=== PATIENT | female | born 1975 | race Caucasian/White ===

== ENCOUNTER 2021-01-04 09:29 | Observation (INO) | payer BC, OTHER ==
[2021-01-04] VITALS (8 sets, daily range): BP systolic 115–126; BP diastolic 55–65
[~2021-01-04] VITALS: Ht 157.5 cm; Wt 90.7 kg
--- NOTE | 2021-01-04 09:52 | ED GU-Female ---
General Chief Complaint: - Reproductive Stated Complaint: VAGINAL BLEEDING Source: patient Exam Limitations: no limitations History of Present Illness Date Seen by Provider: Jan 04, 2021 Time Seen by Provider: 09:44 Initial Comments Patient is a 45-year-old female who presents to the emergency department with a chief complaint of heavy persistent vaginal bleeding over the last 5 weeks. Patient states her last delivery was 21 years ago and she cannot recall the last time she had a pelvic exam/Pap smear. Patient states normally she has fairly regular cycles until the last 5 weeks. She does have lower abdominal cramping. She has been using copious amounts of pads changing them out every 1/2 hour. She complains this morning she was lightheaded and dizzy and felt like she was going to pass out this morning so that is why she came to the emergency department. Her relates that she is very short of breath even with minimal exertion. She is nauseated. She denies fevers, chills, cough or congestion. No chest pain. No diarrhea. No problems with urination. She denies black or bloody stool and she denies hematuria. She is a former . All other review of systems reviewed and negative except as stated Timing/Duration: other (5 weeks) Severity/Quality: severe, cramping Location: suprapubic Associated Symptoms: other (dizzy, lightheaded, nausea, near syncopal) Allergies and Home Medications Allergies Coded Allergies: morphine (Verified Allergy, Unknown, 01/04/21) Patient Home Medication List Home Medication List Reviewed: Yes Review of Systems Review of Systems Constitutional: see HPI EENTM: no symptoms reported Respiratory: short of breath Cardiovascular: no symptoms reported Gastrointestinal: nausea Genitourinary: other (Vaginal bleeding) Musculoskeletal: no symptoms reported Skin: no symptoms reported Psychiatric/Neurological: Other (Lightheaded, dizziness) All Other Systemes Reviewed Negative Unless Noted: Yes Physical Exam Vital Signs Vital Signs - First Documented 01/04/21 01/04/21 09:33 11:50 Temp 36.2 Pulse 112 Resp 18 B/P (MAP) 118/82 (94) Pulse Ox 100 O2 Delivery Room Air Capillary Refill : Height, Weight, BMI Height: '" Weight: lbs. oz. kg; BMI Method: General Appearance: WD/WN, no apparent distress HEENT: pale conjunctivae (R), pale conjunctivae (L) Neck: normal inspection Cardiovascular: regular rate, rhythm Respiratory: lungs clear, normal breath sounds, no respiratory distress, no accessory muscle use Gastrointestinal: soft, tenderness (Minimal suprapubic tenderness) Extremities: normal range of motion, non-tender, normal inspection, no pedal edema Neurologic/Psychiatric: alert, normal mood/affect, oriented x 3 Skin: warm/dry, pallor Progress/Results/Core Measures Suspected Sepsis SIRS Temperature: Pulse: Respiratory Rate: Laboratory Tests 01/04/21 10:00: White Blood Count 14.0H Blood Pressure / Mean: Laboratory Tests 01/04/21 10:00: Creatinine 0.73, INR Comment 1.1, Platelet Count 424H, Total Bilirubin 0.2 Results/Orders Lab Results Laboratory Tests Test 01/04/21 10:00 Range/Units White Blood Count 14.0 H 4.3-11.0 10^3/uL Red Blood Count 2.68 L 3.80-5.11 10^6/uL Hemoglobin 5.6 *L 11.5-16.0 g/dL Hematocrit 20 *L 35-52 % Mean Corpuscular Volume 73 L 80-99 fL Mean Corpuscular Hemoglobin 21 L 25-34 pg Mean Corpuscular Hemoglobin Concent 29 L 32-36 g/dL Red Cell Distribution Width 17.5 H 10.0-14.5 % Platelet Count 424 H 130-400 10^3/uL Mean Platelet Volume 10.9 9.0-12.2 fL Immature Granulocyte % (Auto) 1 % Neutrophils (%) (Auto) 74 42-75 % Lymphocytes (%) (Auto) 16 12-44 % Monocytes (%) (Auto) 7 0-12 % Eosinophils (%) (Auto) 1 0-10 % Basophils (%) (Auto) 1 0-10 % Neutrophils # (Auto) 10.3 H 1.8-7.8 10^3/uL Lymphocytes # (Auto) 2.3 1.0-4.0 10^3/uL Monocytes # (Auto) 1.0 0.0-1.0 10^3/uL Eosinophils # (Auto) 0.1 0.0-0.3 10^3/uL Basophils # (Auto) 0.1 0.0-0.1 10^3/uL Immature Granulocyte # (Auto) 0.2 H 0.0-0.1 10^3/uL Prothrombin Time 14.1 12.2-14.7 SEC INR Comment 1.1 0.8-1.4 Activated Partial Thromboplast Time 30 24-35 SEC Sodium Level 137 135-145 MMOL/L Potassium Level 3.9 3.6-5.0 MMOL/L Chloride Level 104 98-107 MMOL/L Carbon Dioxide Level 22 21-32 MMOL/L Anion Gap 11 5-14 MMOL/L Blood Urea Nitrogen 15 7-18 MG/DL Creatinine 0.73 0.60-1.30 MG/DL Estimat Glomerular Filtration Rate 86 BUN/Creatinine Ratio 21 Glucose Level 107 H 70-105 MG/DL Calcium Level 8.7 8.5-10.1 MG/DL Corrected Calcium 8.7 8.5-10.1 MG/DL Total Bilirubin 0.2 0.1-1.0 MG/DL Aspartate Amino Transf (AST/SGOT) 25 5-34 U/L Alanine Aminotransferase (ALT/SGPT) 29 0-55 U/L Alkaline Phosphatase 26 L 40-136 U/L Total Protein 6.9 6.4-8.2 GM/DL Albumin 4.0 3.2-4.5 GM/DL Serum Test, Qualitative NEGATIVE NEGATIVE My Orders Orders - JUDI THIBODEAUX MD Ed Iv/Invasive Line Start (01/04/21 09:52) Cbc With Automated Diff (01/04/21 09:52) Comprehensive Metabolic Panel (01/04/21 09:52) Hcg,Qualitative Serum (01/04/21 09:52) Protime With Inr (01/04/21 09:52) Partial Thromboplastin Time (01/04/21 09:52) Ua Culture If Indicated (01/04/21 09:52) Ondansetron Injection (Zofran Injectio (01/04/21 10:00) Us Non Ob Pelvis Comp/Transvag (01/04/21 11:12) Type And Screen (01/04/21 11:47) Red Cells Leukocytes Reduced (01/04/21 10:00) Medications Given in ED Vital Signs/I&O 01/04/21 01/04/21 01/05/21 01/05/21 18:30 20:14 01:00 05:21 Temp 37.8 36.8 36.8 36.4 Pulse 101 94 96 76 Resp 18 18 18 18 B/P (MAP) 119/58 126/60 (82) 120/62 (81) 106/56 (73) Pulse Ox 96 98 99 97 O2 Delivery Room Air Room Air Room Air Room Air Capillary Refill : Progress Note #1: Time: 10:16 Progress Note Notified by the lab of critical hemoglobin of 5.6 Progress Note #2: Time: 11:09 Progress Note Case discussed with Dr. Adler on for [employer]. Recommends admission observation with transfusion of at least 2 units of packed red blood cells. Will obtain transvaginal ultrasound today. Her vital signs remained stable. I have communicated the plan of care with the patient. She is comfortable with this. All questions are sought and answered. Departure Communication (Admissions) Time/Spoke to Admitting Phy: 11:[address] Adler, recommends observation admission to women services, transfused 2 units of packed red blood cells with one on standby. TA/TV ultrasound Impression Primary Impression: Vaginal bleeding Additional Impression: Anemia Qualified Codes: D64.9 - Anemia, unspecified Disposition: ADMITTED INPATIENT Condition: Critical Admissions Decision to Admit Reason: Admit from ER (General) Decision to Admit/Date: Jan 04, 2021 Time/Decision to Admit Time: 11:09 Departure-Patient Inst. Referrals: NO,LOCAL PHYSICIAN (PCP/Family) Primary Care Physician JUDI THIBODEAUX MD Jan 04, 2021 09:52
[2021-01-04] MEDS ORDERED: ONDANSETRON 4 MG/2 ML (SDV) Z0FRAN IVP ONE (10:00)
[2021-01-04 10:14] LABS: BASOPHILS # (AUTO) 0.1 10^3/uL (0.0-0.1); BASOPHILS % (AUTO) 1 % (0-10); EOSINOPHILS # (AUTO) 0.1 10^3/uL (0.0-0.3); EOSINOPHILS % (AUTO) 1 % (0-10); LYMPHOCYTES # (AUTO) 2.3 10^3/uL (1.0-4.0); LYMPHOCYTES % (AUTO) 16 % (12-44); MEAN CORPUSCULAR HEMOGLOBIN 21 pg (25-34); MEAN CORPUSCULAR HGB CONC 29 g/dL (32-36); MEAN CORPUSCULAR VOLUME 73 fL (80-99); MEAN PLATELET VOLUME 10.9 fL (9.0-12.2); MONOCYTES % (AUTO) 7 % (0-12); NEUTROPHILS # (AUTO) 10.3 10^3/uL (1.8-7.8); NEUTROPHILS % (AUTO) 74 % (42-75); PLATELET COUNT 424 10^3/uL (130-400)
[2021-01-04 10:16] LABS: HEMATOCRIT 20 % (35-52); HEMOGLOBIN 5.6 g/dL (11.5-16.0)
[2021-01-04 10:27] LABS: POTASSIUM 3.9 MMOL/L (3.6-5.0)
[2021-01-04 10:29] LABS: CALCIUM 8.7 MG/DL (8.5-10.1)
[2021-01-04 10:30] LABS: INR 1.1 (0.8-1.4); PROTHROMBIN TIME PATIENT 14.1 SEC (12.2-14.7); TOTAL PROTEIN 6.9 GM/DL (6.4-8.2)
[2021-01-04 10:32] LABS: BILIRUBIN,TOTAL 0.2 MG/DL (0.1-1.0)
[2021-01-04 10:33] LABS: CREATININE SERUM 0.73 MG/DL (0.60-1.30)
--- NOTE | 2021-01-04 12:19 | History & Physical ---
CORY WALLACE 01/04/21 1219: History of Present Illness History of Present Illness Reason for visit/HPI Adilene is a 45yo F who presented in the ER on 01/04/21 for prolonged vaginal bleeding. Her period started 5 weeks ago and has progressively gotten heavier. She says she has been having fist sized clots and has to change her tampon every 15 minutes and her pads every 30 minutes. She has also been having painful abdominal cramping. This morning when she tried to take a shower she felt like she was going to pass out which is why she came to the ER. She has never had a period that was this heavy or lasted this long. Her period normally lasts 2 weeks and occurs regularly each month. She has an appointment for next week to discuss her vaginal bleeding but she did not feel like she could wait that long. She can not remember the last time she had a pelvic exam done. Date of Admission Jan 04, 2021 at 11:11 Time Seen by a Provider: 12:16 I consulted on this patient on 01/04/21 12:16 Attending Physician Angelo Rosario DO Admitting Physician No,Local Physician Consult Allergies and Home Medications Allergies Coded Allergies: morphine (Verified Allergy, Unknown, 01/04/21) Past [id number] Hx Patient Social History Marrital Status: Tobacco Use?: No Smoking Status: Never a Smoker Smokeless Tobacco Frequency: Never a User Use of E-Cig and/or Vaping dev: No Use of E-Cig and/or Vaping [place]: Never a User Substance use?: No Alcohol Use?: No Pt feels they are or have been: No Seasonal Allergies Seasonal Allergies: No Current Status status: No status: No Advance Directives: Unable to obtain Communicates: Verbally Primary Language: Chinese Preferred Spoken Language: Chinese Is interpretation needed?: No Implanted or Applied Medical D: None Past Medical History Surgeries: Section (Has had 3 sections), Tubal Ligation Currently Using CPAP: No Currently Using BIPAP: No [employer] History: Tubal Ligation Sexually Transmitted Disease: No HIV/AIDS: No Review of Systems Constitutional: dizziness, weakness EENTM: no symptoms reported Respiratory: No cough; short of breath Cardiovascular: No chest pain Gastrointestinal: abdominal pain (Cramping abdominal pain); No diarrhea Genitourinary: no symptoms reported : No Control/STD Prophylaxis: None Musculoskeletal: no symptoms reported Skin: no symptoms reported Psychiatric/Neurological: No Symptoms Reported Physical Exam Vital Signs Vital Signs - First Documented 01/04/21 01/04/21 09:33 11:50 Temp 36.2 Pulse 112 Resp 18 B/P (MAP) 118/82 (94) Pulse Ox 100 O2 Delivery Room Air Capillary Refill : Less Than 3 Seconds Height, Weight, BMI Height: '" Weight: lbs. oz. kg; 35.00 BMI Method: General Appearance: No Apparent Distress Eyes: Bilateral Eye Normal Inspection HEENT: Normal ENT Inspection Neck: Full Range of Motion, Normal Inspection Respiratory: Chest Non Tender, Lungs Clear, Normal Breath Sounds Cardiovascular: Regular Rate, Rhythm Gastrointestinal: Normal Bowel Sounds Neurologic/Psychiatric: Alert, Oriented x3 Skin: Normal Color, Warm/Dry Assessment/Plan Assessment and Plan Problems: (1) Anemia Status: Acute Qualifiers: Qualified Codes: D64.9 - Anemia, unspecified Assessment & Plan: Adilene has a hemoglobin of 5.6 g/dL and a hematocrit of 20%. She will receive 2 units of packed red blood cells and IV fluids. (2) Vaginal bleeding Status: Acute Assessment & Plan: Adilene is receiving a blood transfusion and fluids as stated above to correct the anemia caused by her vaginal blood loss. Transabdominal US and transvaginal US was done to assess for the cause of the bleed. Admission Diagnosis Admission Status: Observation ANGELO ROSARIO DO 01/04/21 1646: History of Present Illness History of Present Illness Date Seen by a Provider: Jan 04, 2021 Allergies and Home Medications Allergies Coded Allergies: morphine (Verified Allergy, Unknown, 01/04/21) Patient Home Medication List Home Medication List Reviewed: Yes Assessment/Plan Admission Diagnosis DIAGNOSIS: 45 YO FEMALE WITH ACUTE BLOOD LOSS ANEMIA UTERINE MASS SUSPICIOUS FOR FIBROID ENLARGED UTERINE SIZE P: PATIENT FIRST PRIORITY IS TO STABILIZE, 2 U PRBC ORDERED AND PATIENT MADE OBSERVATION WILL SCHEDULE FOR OUTPATIENT EVALUATION INCLUDING EMB AND PAP SMEAR ONCE STABILIZED, AND MANAGE PENDING PATHOLOGY STARTED ON PROVERA 10 MG DAILY FOR NOW. Admission Status: Observation Supervisory-Addendum Brief Verification & Attestation Participated in pt care: history Personally performed: exam Care discussed with: Medical Student Procedures: n/a Results interpretation: Verified all documentation Verification and Attestation of Medical Student E/M Service A medical student performed and documented this service in my presence. I reviewed and verified all information documented by the medical student and made modifications to such information, when appropriate. I personally performed the physical exam and medical decision making. Angelo Rosario, Jan 04, 2021,16:45 CORY WALLACE Jan 04, 2021 12:19 ANGELO ROSARIO DO Jan 04, 2021 16:46
--- NOTE | 2021-01-04 12:24 | Diagnostic Imaging Report ---
PROCEDURE: US Non-ob pelvis comp/trans. TECHNIQUE: Multiple Real-time grayscale images were obtained of the pelvis in various projections endovaginally. Transabdominal imaging was also performed. INDICATION: Heavy vaginal bleeding. COMPARISON: Due to patient's body habitus, the pelvic structures are poorly evaluated on transabdominal imaging. The uterus measures approximately 12 x 6 x 8 cm. Transvaginal imaging was performed but also resulted in limited visualization of the uterus. There is a questionable heterogeneous mass at the level of the right hilary-aspect of the fundus raising the possibility of a fibroid. Endometrium is poorly evaluated. Both adnexa are imaged but the ovaries cannot be seen with certainty. IMPRESSION: 1. Significantly limited examination due to patient's body habitus and pelvic bowel gas. This results in poor visualization of the uterus and nonvisualization of the ovaries. 2. There is potential mass at the fundus of the uterus that could represent a fibroid. If further imaging is deemed clinically warranted, MRI of the pelvis without and with IV contrast per the uterus protocol could be performed for improved assessment. Dictated by: Dictated on workstation # [id number]
[2021-01-04] MEDS ORDERED: NS IV 500 ML 500 ML ONE (12:43)
[2021-01-04] MEDS ORDERED: ACETAMINOPHEN 325 MG TABLET PO PRN (12:45)
[2021-01-04] MEDS ORDERED: ONDANSETRON 4 MG/2 ML (SDV) Z0FRAN IVP PRN (12:45)
[2021-01-04] MEDS: NS IV 500 ML 500 ML IV SCH (13:00)
[2021-01-04] MEDS ORDERED: CATHETER FLUSH 10 ML SYR IV PRN (13:30)
[2021-01-04] MEDS ORDERED: medroxyPROGESTERone 10 MG (PROVERA) TAB PO ONE (17:00)
[2021-01-04] MEDS: CATHETER FLUSH 10 ML SYR IV SCH (22:05)
[2021-01-05] MEDS: NS IV 500 ML 500 ML IV SCH ×2 (00:05→08:47)
[2021-01-05 01:00] VITALS: BP 120/62
[2021-01-05 05:21] VITALS: BP 106/56
[2021-01-05] MEDS: CATHETER FLUSH 10 ML SYR IV SCH (05:23)
[2021-01-05 07:38] LABS: BASOPHILS # (AUTO) 0.1 10^3/uL (0.0-0.1); BASOPHILS % (AUTO) 1 % (0-10); EOSINOPHILS # (AUTO) 0.2 10^3/uL (0.0-0.3); EOSINOPHILS % (AUTO) 2 % (0-10); HEMATOCRIT 21 % (35-52); LYMPHOCYTES # (AUTO) 2.8 10^3/uL (1.0-4.0); LYMPHOCYTES % (AUTO) 25 % (12-44); MEAN CORPUSCULAR HEMOGLOBIN 24 pg (25-34); MEAN CORPUSCULAR HGB CONC 31 g/dL (32-36); MEAN CORPUSCULAR VOLUME 77 fL (80-99); MEAN PLATELET VOLUME 10.5 fL (9.0-12.2); MONOCYTES # (AUTO) 0.8 10^3/uL (0.0-1.0); MONOCYTES % (AUTO) 7 % (0-12); NEUTROPHILS # (AUTO) 7.2 10^3/uL (1.8-7.8); NEUTROPHILS % (AUTO) 64 % (42-75); PLATELET COUNT 326 10^3/uL (130-400); WHITE BLOOD COUNT 11.2 10^3/uL (4.3-11.0)
[2021-01-05 07:40] LABS: HEMOGLOBIN 6.5 g/dL (11.5-16.0)
[2021-01-05] MEDS ORDERED: NS IV 500 ML 500 ML IV SCH (08:00)
[2021-01-05 08:43] VITALS: BP 113/52
--- NOTE | 2021-01-05 08:55 | Progress Note ---
Standard Progress Note Progress Notes/Assess & Plan Date Seen by a Provider: Jan 05, 2021 Time Seen by a Provider: 08:15 Progress/Assessment & Plan Patient feeling better this am, she has gotten up and used the rest room, not as weak as yesterday. Bleeding has improved overnight, but still some bleeding. 3rd unit of blood ordered this am due to repeat hgb 6.5. Plan to dc patient later today. Laboratory Tests Test 01/04/21 10:00 01/05/21 07:31 Range/Units White Blood Count 14.0 H 11.2 H 4.3-11.0 10^3/uL Red Blood Count 2.68 L 2.75 L 3.80-5.11 10^6/uL Hemoglobin 5.6 *L 6.5 *L 11.5-16.0 g/dL Hematocrit 20 *L 21 L 35-52 % Mean Corpuscular Volume 73 L 77 L 80-99 fL Mean Corpuscular Hemoglobin 21 L 24 L 25-34 pg Mean Corpuscular Hemoglobin Concent 29 L 31 L 32-36 g/dL Red Cell Distribution Width 17.5 H 18.5 H 10.0-14.5 % Platelet Count 424 H 326 130-400 10^3/uL Mean Platelet Volume 10.9 10.5 9.0-12.2 fL Immature Granulocyte % (Auto) 1 1 % Neutrophils (%) (Auto) 74 64 42-75 % Lymphocytes (%) (Auto) 16 25 12-44 % Monocytes (%) (Auto) 7 7 0-12 % Eosinophils (%) (Auto) 1 2 0-10 % Basophils (%) (Auto) 1 1 0-10 % Neutrophils # (Auto) 10.3 H 7.2 1.8-7.8 10^3/uL Lymphocytes # (Auto) 2.3 2.8 1.0-4.0 10^3/uL Monocytes # (Auto) 1.0 0.8 0.0-1.0 10^3/uL Eosinophils # (Auto) 0.1 0.2 0.0-0.3 10^3/uL Basophils # (Auto) 0.1 0.1 0.0-0.1 10^3/uL Immature Granulocyte # (Auto) 0.2 H 0.1 0.0-0.1 10^3/uL Prothrombin Time 14.1 12.2-14.7 SEC INR Comment 1.1 0.8-1.4 Activated Partial Thromboplast Time 30 24-35 SEC Sodium Level 137 135-145 MMOL/L Potassium Level 3.9 3.6-5.0 MMOL/L Chloride Level 104 98-107 MMOL/L Carbon Dioxide Level 22 21-32 MMOL/L Anion Gap 11 5-14 MMOL/L Blood Urea Nitrogen 15 7-18 MG/DL Creatinine 0.73 0.60-1.30 MG/DL Estimat Glomerular Filtration Rate 86 BUN/Creatinine Ratio 21 Glucose Level 107 H 70-105 MG/DL Calcium Level 8.7 8.5-10.1 MG/DL Corrected Calcium 8.7 8.5-10.1 MG/DL Total Bilirubin 0.2 0.1-1.0 MG/DL Aspartate Amino Transf (AST/SGOT) 25 5-34 U/L Alanine Aminotransferase (ALT/SGPT) 29 0-55 U/L Alkaline Phosphatase 26 L 40-136 U/L Total Protein 6.9 6.4-8.2 GM/DL Albumin 4.0 3.2-4.5 GM/DL Serum Test, Qualitative NEGATIVE NEGATIVE Vital Sign - Last 24 Hours 01/04/21 01/04/21 01/04/21 01/04/21 09:33 11:50 12:25 14:00 Temp 36.2 36.5 36.4 Pulse 112 87 103 100 Resp 18 18 16 20 B/P (MAP) 118/82 (94) 106/56 120/58 (78) 120/57 Pulse Ox 100 100 100 100 O2 Delivery Room Air Room Air Room Air 01/04/21 01/04/21 01/04/21 01/04/21 14:21 16:15 16:33 16:45 Temp 36.9 36.8 37.1 36.7 Pulse 101 101 91 92 Resp 18 18 18 18 B/P (MAP) 116/59 115/55 117/65 122/58 Pulse Ox 99 98 98 97 O2 Delivery Room Air Room Air Room Air Room Air 01/04/21 01/04/21 01/04/21 01/05/21 16:45 18:30 20:14 01:00 Temp 36.7 37.8 36.8 36.8 Pulse 92 101 94 96 Resp 18 18 18 18 B/P (MAP) 122/58 (79) 119/58 126/60 (82) 120/62 (81) Pulse Ox 97 96 98 99 O2 Delivery Room Air Room Air Room Air Room Air 01/05/21 01/05/21 05:21 08:43 Temp 36.4 37.1 Pulse 76 87 Resp 18 16 B/P (MAP) 106/56 (73) 113/52 (72) Pulse Ox 97 93 O2 Delivery Room Air Room Air Intake and Output 01/04/21 01/04/21 01/05/21 15:00 23:00 07:00 Intake Total 0 ml Balance 0 ml Gen: ao x 3 Psych: appropriate mood and affect Diagnosis: Acute blood loss anemia Enlarged uterus suspicious for fibroid P: DC later today Follow up in office for EMB and Pap on GRACE ROSARIO DO Jan 05, 2021 8:55 am
[2021-01-05] MEDS ORDERED: FERR-74 PO (08:57)
[2021-01-05] MEDS ORDERED: MEDR10TA9 PO (08:57)
[2021-01-05] MEDS ORDERED: medroxyPROGESTERone 10 MG (PROVERA) TAB PO SCH (09:00)
[2021-01-05 10:04] VITALS: BP 116/57
[2021-01-05 10:21] VITALS: BP 119/58
[2021-01-05 12:06] VITALS: BP 121/57
== END 2021-01-05 13:45 | disposition home or self-care (01) ==
LOC: ER 09:31 → WS 11:11
PROVIDERS: ADMIT Obstetrics & Gynecology; ATTEND Obstetrics & Gynecology
DX: N93.9 Abnormal uterine and vaginal bleeding, unspecified (principal); D62 Acute posthemorrhagic anemia; N85.2 Hypertrophy of uterus; N85.8 Other specified noninflammatory disorders of uterus; Z98.51 Tubal ligation status; Z98.890 Other specified postprocedural states
CPT/HCPCS: 36430 ×2; 76830; 76856; 80053; 84703; 85025 ×2; 85610; 85730; 86850; 86900; 86901; 86920; 96360; 96361 ×2; 99284; G0378; P9016 ×2; 36415

== ENCOUNTER 2021-01-15 06:45 | Outpatient (CLI) | payer BC ==
[~2021-01-15] VITALS: Ht 157.5 cm; Wt 90.9 kg
[~2021-01-15 06:45] MED LIST: FERR-74 PO; MEDR10TA9 PO
[2021-01-18] MEDS ORDERED: SMT80CT PO (13:03)
[2021-01-18] MEDS ORDERED: DOCU100C37 PO (13:03)
[2021-01-18] MEDS ORDERED: IBUP-844 PO (13:03)
[2021-01-18] MEDS ORDERED: HYDR-34 PO (13:03)
== END 2021-01-15 09:35 | disposition home or self-care (01) ==
LOC: PREOP 06:45
PROVIDERS: ATTEND Obstetrics & Gynecology
DX: Z01.818 Encounter for other preprocedural examination (principal)

== ENCOUNTER 2021-01-15 10:34 | Outpatient (CLI) | payer BC ==
[2021-01-15 10:45] VITALS: BP 121/86
[2021-01-15] MEDS ORDERED: IRON DEXTRAN 25 MG/NS 6.25 ML TOTAL VOLUME IV ONE ×3 (11:00)
[2021-01-15] MEDS ORDERED: IRON DEXTRAN 1,000 MG/NS 250 ML IVPB IV ONE ×2 (11:15)
== END 2021-01-15 13:30 | disposition home or self-care (01) ==
LOC: SDC 10:34
PROVIDERS: ATTEND Obstetrics & Gynecology
DX: Z51.81 Encounter for therapeutic drug level monitoring (principal)
CPT/HCPCS: 96365

== ENCOUNTER 2021-01-18 08:12 | Day surgery (SDC) | payer BC ==
[2021-01-18] VITALS (12 sets, daily range): BP systolic 118–148; BP diastolic 62–96
[~2021-01-18] VITALS: Ht 157.5 cm; Wt 91.0 kg
[2021-01-18] MEDS ORDERED: ceFAZolin 2 GM IV Premixed 50 ML IV ONE (08:30)
[2021-01-18] MEDS ORDERED: metroNIDAZOLE 500MG/100ML IVPB 100 ML IV ONE (08:30)
[2021-01-18] MEDS ORDERED: LACTATED RINGERS 1,000 ML IV PRN (08:30)
[2021-01-18 09:32] LABS: BASOPHILS # (AUTO) 0.1 10^3/uL (0.0-0.1); BASOPHILS % (AUTO) 1 % (0-10); EOSINOPHILS # (AUTO) 0.3 10^3/uL (0.0-0.3); EOSINOPHILS % (AUTO) 3 % (0-10); HEMATOCRIT 37 % (35-52); HEMOGLOBIN 11.1 g/dL (11.5-16.0); LYMPHOCYTES # (AUTO) 1.5 10^3/uL (1.0-4.0); LYMPHOCYTES % (AUTO) 17 % (12-44); MEAN CORPUSCULAR HEMOGLOBIN 26 pg (25-34); MEAN CORPUSCULAR HGB CONC 30 g/dL (32-36); MEAN CORPUSCULAR VOLUME 86 fL (80-99); MEAN PLATELET VOLUME 10.5 fL (9.0-12.2); MONOCYTES # (AUTO) 0.7 10^3/uL (0.0-1.0); MONOCYTES % (AUTO) 8 % (0-12); NEUTROPHILS # (AUTO) 6.3 10^3/uL (1.8-7.8); NEUTROPHILS % (AUTO) 71 % (42-75); PLATELET COUNT 320 10^3/uL (130-400); WHITE BLOOD COUNT 8.9 10^3/uL (4.3-11.0)
[2021-01-18] MEDS ORDERED: fentaNYL INJ 100 MCG/2 ML AMP ONE (10:09)
[2021-01-18] MEDS ORDERED: proPOfol 200 MG/20 ML (DIPRIVAN) VIAL IV ONE (10:09)
[2021-01-18] MEDS ORDERED: GLYCOPYRROLATE 0.2 MG/ML (ROBINUL) 2 ML VIAL ONE (10:09)
[2021-01-18] MEDS ORDERED: LIDOCAINE PF 2% 5 ML (XYLOCAINE) VIAL ONE (10:09)
[2021-01-18] MEDS ORDERED: ONDANSETRON 4 MG/2 ML (SDV) Z0FRAN ONE (10:09)
[2021-01-18] MEDS ORDERED: ROCURONIUM 50 MG/5 ML (ZEMURON) VIAL IV ONE ×2 (10:09→11:37)
[2021-01-18] MEDS ORDERED: MIDAZOLAM 2 MG/2 ML (VERSED) VIAL ONE (10:09)
[2021-01-18] MEDS ORDERED: NEOSTIGMINE 3 MG/3 ML VIAL ONE (10:09)
[2021-01-18] MEDS ORDERED: ONDANSETRON 4 MG/2 ML (SDV) Z0FRAN IVP PRN (10:15)
[2021-01-18] MEDS ORDERED: fentaNYL INJ 100 MCG/2 ML AMP IVP ONE (10:15)
[2021-01-18] MEDS ORDERED: HYDROmorphone 2 MG/ML VIAL (DILAUDID) IV ONE (10:15)
[2021-01-18] MEDS ORDERED: BUPIVACAINE 0.25% 30 ML (SENSORCAINE) VIAL ONE (10:21)
--- NOTE | 2021-01-18 10:24 | Progress Note-Pre Operative ---
Pre-Operative Progress Note H&P Reviewed The H&P was reviewed, patient examined and no changes noted. Date Seen by Provider: Jan 18, 2021 Time Seen by Provider: 10:00 Date H&P Reviewed: Jan 18, 2021 Time H&P Reviewed: 10:00 Pre-Operative Diagnosis: Fibroid uterus, AUB, Chronic blood loss anemia GRACE ROSARIO DO Jan 18, 2021 10:24
[2021-01-18] MEDS ORDERED: ONDANSETRON 4 MG/2 ML (SDV) Z0FRAN IV PRN (10:45)
[2021-01-18] MEDS ORDERED: CHLORASEPTIC LOZENGE MM PRN (10:45)
[2021-01-18] MEDS ORDERED: ZOLPIDEM 5 MG (AMBIEN) TAB PO PRN (10:45)
[2021-01-18] MEDS ORDERED: SIMETHICONE 80 MG (MYLICON) CHEW PO PRN (10:45)
[2021-01-18] MEDS ORDERED: NALOXONE 0.4 MG/ML 1 ML (NARCAN) VIAL IV PRN (10:45)
[2021-01-18] MEDS ORDERED: ANTACID SUSP 30 ML UDC (MYLANTA) PO PRN (10:45)
[2021-01-18] MEDS ORDERED: DOCUSATE SODIUM 100 MG (COLACE) CAP PO PRN (10:45)
[2021-01-18] MEDS ORDERED: INDIGO CARMINE 8 MG/ML 5 ML AMP ONE (11:24)
[2021-01-18] MEDS ORDERED: HYDROmorphone 2 MG/ML VIAL (DILAUDID) ONE (11:52)
[2021-01-18] MEDS ORDERED: SEVOFLURANE (ULTANE) 15 ML INHAL SOLN ONE (12:47)
--- NOTE | 2021-01-18 13:02 | Discharge Inst-Women's Service ---
Discharge Inst-Women's Serv Depart Medication/Instructions New, Converted or Re-Newed RX: Transmitted to Pharmacy Problems Reviewed?: Yes Consults/Follow Up Additional Follow Up: Yes Orders/Referrals Dr. Adler or Adriana in 7-10 days Activity Activity: Activity as Tolerated Driving Instructions: No Driving for 1 Week NO SMOKING: NO SMOKING Nothing Inside Vagina: No Douching, No [place], No Tampons Diet Discharge Diet: No Restrictions Symptoms to Report to : Bleeding Excessive, Pain Increased, Fever Over 101 Degrees F, Vaginal Bleeding Increase, Questions/Concerns For Any Problems or Questions: Contact Your Physician Skin/Wound Care Infection Signs and Symptoms: Increased Redness, Foul Odor of Wound, Increased Drainage, Skin Itchy or Has a Rash, Increased Swelling, Temperature Above 101 F Stitches/[place]/Dermabond: Dermabond, Care of Stitches Bathing Instructions: GRACE Lin DO Jan 18, 2021 13:02
[2021-01-18] MEDS ORDERED: IBUP-844 PO (13:03)
[2021-01-18] MEDS ORDERED: DOCU100C37 PO (13:03)
[2021-01-18] MEDS ORDERED: HYDR-34 PO (13:03)
[2021-01-18] MEDS ORDERED: SMT80CT PO (13:03)
[2021-01-18] MEDS ORDERED: KETOROLAC 30 MG/ML VIAL ONE (13:11)
[2021-01-18] MEDS: KETOROLAC 30 MG/ML VIAL IVP PRN ×3 (13:13→20:37)
[2021-01-18] MEDS ORDERED: HYDROcodone/APAP 7.5 MG/325 MG (LORTAB, LORCET PLUS) TABLET PO ONE ×2 (14:24→14:27)
[2021-01-18] MEDS: HYDROcodone/APAP 7.5 MG/325 MG (LORTAB, LORCET PLUS) TABLET PO PRN ×2 (14:29→21:39)
[2021-01-18] MEDS: LACTATED RINGERS 1,000 ML IV SCH (15:57)
[2021-01-19 00:05] VITALS: BP 117/68
[2021-01-19] MEDS: LACTATED RINGERS 1,000 ML IV SCH ×2 (00:15→02:45)
--- NOTE | 2021-01-19 00:32 | OPERATIVE REPORT ---
DATE OF SERVICE: PREOPERATIVE DIAGNOSES: 1. A 45-year-old female with abnormal uterine bleeding. 2. Menorrhagia. 3. Chronic blood loss anemia. 4. Fibroid uterus. POSTOPERATIVE DIAGNOSES: 1. A 45-year-old female with abnormal uterine bleeding. 2. Menorrhagia. 3. Chronic blood loss anemia. 4. Fibroid uterus. PROCEDURE: Robotic-assisted total laparoscopic hysterectomy with bilateral salpingectomy, weighing 484 grams. SURGEON: Angelo Adler DO VICE PRESIDENT QUALITY ASSURANCE: Adriana Broderick DNP, was necessary for manipulation and retraction throughout the procedure. ANESTHESIA: General endotracheal. ESTIMATED BLOOD LOSS: 50 mL. URINE OUTPUT: 100 mL of indigo carmine stained at the end of the procedure. FLUIDS: 1200 mL lactated Ringer's solution. FINDINGS: A bulky uterus weighing 484 grams. Grossly normal appearing bilateral fallopian tubes and ovaries. SPECIMEN SENT: Uterus, bilateral fallopian tubes. INDICATIONS FOR PROCEDURE: This 45-year-old female is a patient that approximately 2 weeks ago, was admitted via the Emergency Department for chronic blood loss anemia and her hemoglobin was at 5. She was given 3 units of packed red blood cells and started on Provera, which slowed down her bleeding, but told that she needed follow up urgently to discuss addressing the bleeding issue and her followup Pap smear cytology was obtained as well as endometrial biopsy, both of which were negative. I discussed with the patient in the very short-term followup that we should consider proceeding with removal of this fibroid, we discussed doing this with hysterectomy. This would be definitive measures versus the possibility of failure with other measures. Due to its definitive measure and the concern, the patient being hospitalized again with blood transfusion needs and possible anemia and exsanguination. The patient and her agreed to proceed with hysterectomy. I discussed with my patient Robotic-assisted surgery and the benefits of this. Risks of the procedure were discussed in detail including risk of bleeding, infection, damaging surrounding structures including, but not limited to bowel, bladder, ureter, kidneys, possible need for operation, postoperative complications that may occur, risk from anesthesia, recovery timeframe and even . After all their questions were answered, consent was obtained in the preoperative area and the patient was taken to the operating room. OPERATIVE REPORT IN DETAIL: Once in the operating room, anesthesia was found to be adequate, placed in dorsal lithotomy position, prepped and draped in normal sterile fashion where a timeout was performed and anesthesia was tested. I then proceeded with placing a Joel catheter using sterile technique. A weighted speculum was inserted into the patient's vagina. Right angle retractor was utilized. Cervix, which was grasped at 12 o'clock position using a 0 Vicryl suture through the anterior lip. The suture was then used as my retraction point. I then sounded the uterine cavity, depth was found to be 10 cm. I selected an 8 cm Dorota uterine manipulator tip and a 4 cm colpotomy ring. The manipulator tip was advanced into the uterine endometrium and the balloon was deployed. The colpotomy ring was advanced around the vaginal fornix, at which point, I removed all the other instruments from the patient's vagina, performed change of gloves and took my attention to the abdomen, where subcostally at the midclavicular line, I placed a Veress needle through the skin until intraperitoneal placement was confirmed using saline drop test. An opening pressure of 5 mmHg was noted using CO2 gas. I insufflated a maximum pressure of 15 mmHg, at which point, I made a supraumbilical incision at 8 mm after infiltrating the skin using 0.25% Marcaine. Once this incision was made, I placed a blunt da Nani camera trocar through the incision until intraperitoneal placement was confirmed using the da Nani laparoscope. Brief scan of the lower and upper abdominal anatomy appears to be grossly normal. I removed the Veress needle. I had the patient placed in steep Trendelenburg. I was able to visualize all my pelvic anatomy as defined in my findings above. I placed two lateral trocars approximately 10 cm lateral to my supraumbilical trocar. These were both 8 mm trocars were placed under the similar fashion only. These were placed under direct visualization and laparoscope. Once both these are in place, I bring in the Wonderflow robot and docked in appropriate fashion, placing the da Nani vessel sealer in the left hand and monopolar selwyn in the right hand performed the following dissection bilaterally. Starting at the uteroovarian ligament, I sealed and transected using vessel sealer. I then created a window in the mesosalpinx, which I take laterally amputating the fallopian tube from its surrounding blood supply. I then grasped the round ligament, which I sealed and transected using vessel sealer. This allows me to grasp the entire broad ligament, both anterior and posterior leaflets using the vessel sealer, which I sealed and transected down to the level of the lower uterine segment, at which point I the anterior and posterior leaflets of the broad ligament, anterior leaflet was taken around the anterior vaginal fornix. The posterior leaflet was taken around the posterior vaginal fornix. This allows me to skeletonize the uterine vessels laterally, which I sealed and transected using vessel sealer. There is some distortion in the anatomy due to the size of the fibroids. Therefore, some blunt dissection has to be performed in order to peel the bladder flap off of the anterior vaginal fornix. Once this was done, I am able to visualize the colpotomy ring. I created a colpotomy at 12 o'clock position using monopolar selwyn and took this circumferentially around the vaginal fornix amputating the cervix away from the vagina. The cervix and uterus are then removed through the vagina. This has to be done carefully with bivalving the uterus due to its size, it has to be taken out in several smaller pieces. However, the larger portion of the uterus is kept together intact and was able to be removed in one solid piece. Once all of the specimen was then removed, I proceeded with closing the lateral vaginal apices of the vaginal cuff using 2-0 Vicryl suture in a dirrak-gf-stloe fashion colposuspending the uterosacral ligaments. I then closed the remainder of the vaginal cuff using 2-0 V-Loc in a running fashion, after which there was no active bleeding noted from any of my dissection planes. I then undocked the da Nani robot and proceeded with remainder of the case laparoscopically. I copiously irrigated the pelvis using normal saline. Once again, there was no active bleeding noted from any of my dissection planes. I placed Surgiflo hemostatic agent over all my planes of dissection. I removed the lateral trocars under direct visualization of the laparoscope and the patient was taken out of steep Trendelenburg. The infraumbilical trocar was left in place to release insufflation and to introduce 1500 mL of 0.25% Marcaine into peritoneal cavity for postoperative pain management. I then removed this trocar as well. The skin reapproximated using 4-0 Monocryl interrupted subcuticular stitches. Dermabond was applied to the incisions and Band-Aids were placed over the incisions as well. The puncture wound from the Veress needle was covered with Dermabond as well. There is a vaginal perineal laceration from removal of the fibroid noted after the procedure. This was closed using 3-0 Rapide Vicryl suture in the usual fashion as I would for an episiotomy. After which, there was no active bleeding noted from that source either. Joel catheter was left in place. The patient tolerated the procedure well and sent to recovery area in stable condition. Lap and sponge counts were correct at the end of the procedure. Instrument count instrument count was correct as well. Two grams of Ancef, 500 mg of Flagyl were given preoperatively for infection prophylaxis. Job ID: [id number] DocumentID: [id number] Dictated Date: 01/18/2021 13:44:17 Surgery Scheduler Date: 01/19/2021 00:30:44 Dictated By: DO JOSEPH RUBIN
[2021-01-19 03:56] VITALS: BP 112/65
[2021-01-19] MEDS: KETOROLAC 30 MG/ML VIAL IVP PRN ×2 (03:56→09:51)
[2021-01-19] MEDS: HYDROcodone/APAP 7.5 MG/325 MG (LORTAB, LORCET PLUS) TABLET PO PRN (07:37)
[2021-01-19 08:45] VITALS: BP 102/56
--- NOTE | 2021-01-19 09:48 | Anesthesia-General Post-Op ---
General Patient Condition Mental Status/LOC: Same as Preop Cardiovascular: Satisfactory Nausea/Vomiting: Absent Respiratory: Satisfactory Pain: Controlled Complications: Absent Post Op Complications Complications None Follow Up Care/Instructions Patient Instructions None needed. Anesthesia/Patient Condition Patient Condition Patient is doing well, no complaints, stable vital signs, no apparent adverse anesthesia problems. No complications reported per nursing. KIRBY MIJARES CRNA Jan 19, 2021 09:48
[2021-01-19 11:35] VITALS: BP 102/56
[2021-01-23] MEDS ORDERED: IBUPROFEN 600 MG (MOTRIN) TAB PO SCH (18:00)
== END 2021-01-19 11:35 | disposition home or self-care (01) ==
LOC: SDC 08:12 → WS 14:13 → SDC 01-19 11:35
PROVIDERS: ATTEND Obstetrics & Gynecology
DX: D25.1 Intramural leiomyoma of uterus (principal); D25.0 Submucous leiomyoma of uterus; D28.2 Benign neoplasm of uterine tubes and ligaments; N70.11 Chronic salpingitis; N83.8 Other noninflammatory disorders of ovary, fallopian tube and broad ligament; N88.8 Other specified noninflammatory disorders of cervix uteri; D50.0 Iron deficiency anemia secondary to blood loss (chronic); E66.9 Obesity, unspecified; Z68.37 Body mass index [BMI] 37.0-37.9, adult; Z79.899 Other long term (current) drug therapy; Z98.51 Tubal ligation status
CPT/HCPCS: 36415; 84703; 85025; 86850; 86900; 86901; 87081